=== PATIENT | female | born 1935 | race Caucasian/White ===

== ENCOUNTER → 2017-11-17 | Outpatient (CLI) | payer MEDICARE, OTHER ==
[~2017-11-17] MED LIST: ACETAMINOPHEN-1 EAC1; ACETAMINOPHEN-1 EAC1 PO; ADULT LOW DOSE81 MG; ASPIR 8181 MG PO; B-100 COMPLEX1 EAC1 PO; BONIVA; CARDIZEM30 MG PO; DILTIAZEM HCL90 MG PO; DULERA 200 MCG/13 GM INH; FISH OIL 1,0001 EAC5 PO; FISH OIL 1,0001 EAC6; FLAGYL500 MG PO; GRALISE600 MG PO; IBANDRONATE SO150 MG PO; IMDUR 30 MG TAB30 M1 PO; IRON325 PO; ISOSORBIDE DINI30 MG; ISOSORBIDE MONO30 M1 PO; LASIX 40 MG TAB40 M2 PO; LEVAQUIN 500 M500 M2 PO; LOPRESSOR 50 MG50 M1; METOPROLOL SUCC25 M1 PO; NEURONTIN 300300 M1 PO; NEURONTIN600 MG; NEURONTIN600 MG PO; NEXIUM 40 MG CA40 M1 PO; NEXIUM20 MG PO; NEXIUM40 MG; NORVASC5 MG PO; OS-CAL 500+D C1 EACH; OXYBUTYNIN 5 MG5 M2 PO; PAIN & FEVER325 MG PO; PHENERGAN 25 MG25 M1 PO; PRAVACHOL80 MG PO; SENNA LAXATIVE25 MG PO; SENOKOT-S1 TA1 PO; SIMVASTATIN40 MG; STOOL SOFTENER1 EAC1 PO; TOPROL XL25 MG PO; TOPROL XL50 MG PO; VITAMIN B-121000 MC1 PO; VITAMIN C + RO500 MG; VITAMIN C500 M1 PO; VITAMIN D1000 UNI2 PO; VITAMINC500 PO; XANAX 0.25 MG0.25 MG PO; ZOCOR40 MG PO; ZOFRAN ODT4 MG PO; [UNRECOGNIZED DRUG - OTHER]
--- NOTE | 2017-11-17 13:47 | 2DMMODE ---
[place] [address] 2 D/M-MODE ECHOCARDIOGRAM Name: JUSTINBRIANDA Room: [facility]#: [id number] Admission: 11/17/17 Attend Phys: Rolo Griffith, Discharge: Date of : 31 Date of Service: 11/17/17 1346 Report #: [id number] THIS REPORT FOR: //name// APPROVED REPORT Study performed: 11/17/2017 10:05:10 EXAM: Comprehensive 2D, Doppler, and color-flow Echocardiogram Patient Location: Out-Patient Status: routine BSA: 1.71 HR: 66 bpm BP: 102/68 mmHg Other Information Study Quality: Good Indications Mitral Valve Disease 2D Dimensions LVEF(%): 55.43 (>50%) IVSd: 13.36 (7-11mm) LVOT Diam: 20.27 (18-24mm) LVDd: 44.97 mm PWd: 11.69 (7-11mm) Ascending Ao: 25.93 (22-36mm) LVDs: 32.06 (25-40mm) Aortic Root: 23.19 mm Prcie's LVEF: 55.43 % Volumes Left Atrial Volume (Systole) LA ESV Index: 36.50 mL/m2 Aortic Valve AoV Peak Prieto.: 2.82 m/s AO Peak Gr.: 31.75 mmHg LVOT Max P.54 mmHg AO Mean Gr.: 18.95 mmHg LVOT Mean P.70 mmHg LVOT Max V: 1.18 m/s AO V2 VTI: 63.37 cm LVOT Mean V: 0.76 m/s LE (VTI): 1.30 cm2 LVOT V1 VTI: 25.46 cm Mitral Valve MV Peak Gr.: 13.62 mmHg MV Mean Gr.: 6.67 [place] [address] 2 D/M-MODE ECHOCARDIOGRAM Name: BRIANDA ANDERSON Room: [facility]#: [id number] Admission: 11/17/17 Attend Phys: Rolo Griffith, Discharge: Date of : 31 Date of Service: 11/17/17 1346 Report #: [id number] MV Decel. Time: 161.61 ms MV PHT: 46.87 ms MVA (PHT): 4.69 cm2 TDI Medial E' Prieto.: 0.11 m/s Lateral E' Prieto.: 0.08 m/s Pulmonary Valve PV Peak Prieto.: 0.95 m/s PV Peak Gr.: 3.59 mmHg Tricuspid Valve TR Peak Gr.: 28.05 mmHg RVSP: 33.05 mmHg Left Ventricle The left ventricle is normal size. There is normal LV segmental wall motion. There is normal left ventricular wall thickness. Left ventricular systolic function is normal. The left ventricular ejection fraction is within the normal range. LVEF is 60-65%. Grade I - abnormal relaxation pattern. Right Ventricle The right ventricle is normal size. The right ventricular systolic function is normal. Pacemaker lead is present in the right ventricle. Atria Left atrium is moderately dilated. Pacemaker lead is present in the right atrium. Aortic Valve Aortic valve is calcified. No aortic regurgitation is present. Mild aortic stenosis. Mitral Valve Severe mitral annular calcification. Moderate mitral regurgitation. No significant mitral valve stenosis. Tricuspid Valve The tricuspid valve is normal in structure. Mild tricuspid regurgitation. The RVSP is __33 mmHg. Pulmonic Valve The pulmonary valve is normal in structure. Mild pulmonic regurgitation[place] [address] 2 D/M-MODE ECHOCARDIOGRAM Name: BRIANDA ANDERSON Room: [facility]#: [id number] Admission: 11/17/17 Attend Phys: Rolo Griffith, Discharge: Date of : 31 Date of Service: 11/17/17 1346 Report #: [id number] The aortic root is normal in size. IVC is normal in size and collapses with >50% inspiration Pericardium There is no pericardial effusion. <Conclusion> The left ventricle is normal size. There is normal left ventricular wall thickness. Left ventricular systolic function is normal. The left ventricular ejection fraction is within the normal range. LVEF is 60-65%. Grade I - abnormal relaxation pattern. The right ventricle is normal size. Left atrium is moderately dilated. Aortic valve is calcified. No aortic regurgitation is present. Mild aortic stenosis. Severe mitral annular calcification. Moderate mitral regurgitation. No significant mitral valve stenosis. The tricuspid valve is normal in structure. Mild tricuspid regurgitation. The RVSP is __33 mmHg. The aortic root is normal in size. IVC is normal in size and collapses with >50% inspiration There is no pericardial effusion. There is normal LV segmental wall motion. <ELECTRONICALLY SIGNED> By: Kermit Darden MD, FACC 11/17/17 1346 134 Kermit Darden MD, FACC /INF
== END ==
LOC: M.CRD 09:38
DX: I08.1 Rheumatic disorders of both mitral and tricuspid valves (principal); I10 Essential (primary) hypertension; Z95.0 Presence of cardiac pacemaker

== ENCOUNTER → 2018-02-11 | Outpatient (CLI) | payer MEDICARE, OTHER | LOC: M.RAD 12:39 | DX: M16.12 Unilateral primary osteoarthritis, left hip (principal); M70.72 Other bursitis of hip, left hip ==

== ENCOUNTER → 2018-06-26 | Outpatient (CLI) | payer MEDICARE, OTHER | LOC: M.RAD 10:57 | DX: Z12.31 Encounter for screening mammogram for malignant neoplasm of breast (principal) ==

== ENCOUNTER → 2019-01-13 | Outpatient (CLI) | payer MEDICARE, OTHER ==
--- NOTE | 2019-01-13 14:00 | 2DMMODE ---
[place] [address] 2 D/M-MODE ECHOCARDIOGRAM Name: KELLY ANDERSONRED AG Room: [facility]#: [id number] Admission: 01/13/19 Attend Phys: Rolo Griffith, Discharge: Date of : 31 Date of Service: 01/13/19 1359 Report #: [id number] THIS REPORT FOR: //name// APPROVED REPORT Study performed: 01/13/2019 08:57:59 EXAM: Comprehensive 2D, Doppler, and color-flow Echocardiogram Patient Location: Out-Patient BSA: 1.73 HR: 78 bpm BP: 105/68 mmHg Other Information Study Quality: Good Indications Mitral Valve Disease 2D Dimensions IVSd: 13.73 (7-11mm) LVOT Diam: 20.15 (18-24mm) LVDd: 46.59 mm PWd: 10.42 (7-11mm) Ascending Ao: 29.22 (22-36mm) LVDs: 29.94 (25-40mm) Aortic Root: 22.41 mm Volumes Left Atrial Volume (Systole) LA ESV Index: 31.10 mL/m2 Aortic Valve AoV Peak Prieto.: 3.11 m/s AO Peak Gr.: 38.70 mmHg LVOT Max P.45 mmHg AO Mean Gr.: 21.72 mmHg LVOT Mean P.14 mmHg LVOT Max V: 1.62 m/s AO V2 VTI: 66.57 cm LVOT Mean V: 1.04 m/s LE (VTI): 1.56 cm2 LVOT V1 VTI: 32.58 cm Mitral Valve MV Peak Gr.: 11.38 mmHg MV Mean Gr.: 6.30 mmHg E/A Ratio: 1.14 MV Decel. Time: 194.76 ms MV E Max Prieto.: 1.89 m/s MV PHT: 56.48 [place] [address] 2 D/M-MODE ECHOCARDIOGRAM Name: JUSTINBRIANDA LUONG Room: [facility]#: [id number] Admission: 01/13/19 Attend Phys: Rolo Griffith, Discharge: Date of : 31 Date of Service: 01/13/19 1359 Report #: [id number] MVA (PHT): 3.90 cm2 TDI E/Lateral E': 23.63 E/Medial E': 23.63 Medial E' Prieto.: 0.08 m/s Lateral E' Prieto.: 0.08 m/s Pulmonary Valve PV Peak Prieto.: 0.88 m/s PV Peak Gr.: 3.12 mmHg Tricuspid Valve RAP Estimate: 5.00 mmHg TR Peak Gr.: 35.77 mmHg RVSP: 40.77 mmHg PA Pressure: 40.77 mmHg Left Ventricle The left ventricle is normal size. There is normal LV segmental wall motion. There is normal left ventricular wall thickness. Left ventricular systolic function is normal. The left ventricular ejection fraction is within the normal range. LVEF is 60%. The left ventricular diastolic function is normal. Right Ventricle The right ventricle is normal size. The right ventricular systolic function is normal. Pacemaker lead is present in the right ventricle. Atria Left atrium is moderately dilated. Pacemaker lead is present in the right atrium. Aortic Valve Aortic valve is mildly calcified. Mild aortic regurgitation. Mild aortic stenosis. Mitral Valve Severe mitral annular calcification. Mitral valve leaflets are moderately thickened. Moderate mitral regurgitation. Mild mitral stenosis. Tricuspid Valve The tricuspid valve is normal in structure. Mild to moderate tricuspid regurgitation. Pulmonic Valve The pulmonary valve is normal in structure. Mild [place] [address] 2 D/M-MODE ECHOCARDIOGRAM Name: BRIANDA ANDERSON Room: [facility]#: [id number] Admission: 01/13/19 Attend Phys: Rolo Griffith, Discharge: Date of : 31 Date of Service: 01/13/19 1359 Report #: [id number] Great Vessels The aortic root is normal in size. IVC is normal in size and collapses >50% with inspiration. Pericardium There is no pericardial effusion. <Conclusion> The left ventricle is normal size. There is normal left ventricular wall thickness. Left ventricular systolic function is normal. The left ventricular ejection fraction is within the normal range. LVEF is 60%. The right ventricle is normal size. Left atrium is moderately dilated. Aortic valve is mildly calcified. Mild aortic regurgitation. Mild aortic stenosis. Severe mitral annular calcification. Mitral valve leaflets are moderately thickened. Moderate mitral regurgitation. Mild mitral stenosis. The tricuspid valve is normal in structure. Mild to moderate tricuspid regurgitation. IVC is normal in size and collapses >50% with inspiration. There is normal LV segmental wall motion. <ELECTRONICALLY SIGNED> By: Kermit Darden MD, FACC 01/13/19 1359 1359 1359 Kermit Darden MD, FACC /INF
== END ==
LOC: M.CRD 01-12 15:35
DX: I08.3 Combined rheumatic disorders of mitral, aortic and tricuspid valves (principal)

== ENCOUNTER 2019-02-22 18:25 | Emergency (ER) | payer MEDICARE, OTHER ==
[~2019-02-22] VITALS: Ht 157.5 cm; Wt 65.8 kg
[2019-02-22 19:30] LABS: ABSOLUTE EOSINOPHILS 0.2 thou/uL (0.0-0.7); ABSOLUTE LYMPHOCYTES 0.7 thou/uL (0.8-5.3); ABSOLUTE MONOCYTES 0.4 thou/uL (0.0-1.2); ABSOLUTE NEUTROPHILS 1.5 thou/uL (1.6-8.1); BASOPHILS 1.4 %; HEMATOCRIT 32.3 % (37.0-47.0); HEMOGLOBIN 10.7 gm/dL (12.0-15.0); LYMPHOCYTES 24.9 %; MCH 30.5 pg (26.0-34.0); MCHC 33.1 g/dL (28.0-37.0); MPV 9.5 fl. (7.2-11.1); NUCLEATED RBCS 0 /100WBC; PLATELET COUNT* 91 thou/uL (150-400); POLYS 51.7 %; RBC 3.51 mil/uL (4.20-5.00); RDW-CV 15.8 % (10.5-14.5); WBC 2.9 thou/uL (4.0-11.0)
[2019-02-22 19:36] LABS: CALCIUM 8.8 mg/dL (8.5-10.1); CREATININE 1.3 mg/dL (0.6-1.3); POTASSIUM 4.3 mmol/L (3.5-5.1)
[2019-02-22 19:41] LABS: ALBUMIN 3.5 g/dL (3.4-5.0); TOTAL BILIRUBIN 0.4 mg/dL (<0.1-1.0); TOTAL PROTEIN 6.2 g/dL (6.4-8.2)
[2019-02-22 20:04] LABS: URINE BILIRUBIN NEGATIVE (Negative); URINE BLOOD NEGATIVE (Negative); URINE CLARITY CLEAR; URINE COLOR YELLOW; URINE GLUCOSE-RANDOM NEGATIVE (Negative); URINE KETONES NEGATIVE (Negative); URINE LEUKOCYTES-REFLEX NEGATIVE (Negative); URINE NITRITE-REFLEX NEGATIVE (Negative); URINE PROTEIN NEGATIVE (Negative); URINE UROBILINOGEN 0.2 E.U./dl (0.2-1.0)
[2019-02-22 21:56] VITALS: BP 104/42
--- NOTE | 2019-02-23 12:53 | EKG ---
[place] [address] ELECTROCARDIOGRAM REPORT Name: BRIANDA ANDERSON AG Room: [facility]#: [id number] Admission: 02/22/19 Attend Phys: Discharge: 02/22/19 Date of : 31 Report #: [id number] THIS REPORT FOR: //name// [facility] Test Date: 2019-02-22 Test Time: 20:36:46 Pat Name: BRIANDA ANDERSON Department: Room: Gender: F Log Feeder: KELLY : 1935 Requested By: Otilia Vegas Order Number: [id number] MD: Rolo Griffith Measurements Intervals [place] Rate: 67 P: 27 [place]: 303 QRS: -49 QRSD: 157 T: 102 QT: 509 QTc: 538 Interpretive Statements Atrial-sensed ventricular-paced rhythm No further analysis attempted due to paced rhythm Compared to ECG 02/05/2017 01:17:24 No significant changes Electronically Signed On 02-23-2019 12:53:13 CDT by Rolo Griffith [email or web address] <ELECTRONICALLY SIGNED> By: Rolo Griffith MD, [facility] 02/23/19 1253 35 35 Rolo Griffith MD, [facility] /EPI
== END 2019-02-22 21:56 | disposition home or self-care (01) ==
LOC: M.ERS 18:25
PROVIDERS: Physician Assistant
DX: K59.00 Constipation, unspecified (principal); M79.7 Fibromyalgia; M19.90 Unspecified osteoarthritis, unspecified site; Z90.49 Acquired absence of other specified parts of digestive tract; Z85.828 Personal history of other malignant neoplasm of skin; Z95.0 Presence of cardiac pacemaker; Z88.1 Allergy status to other antibiotic agents; Z88.2 Allergy status to sulfonamides; Z88.8 Allergy status to other drugs, medicaments and biological substances; Z88.6 Allergy status to analgesic agent

== ENCOUNTER 2019-03-13 22:25 | Emergency (ER) | payer MEDICARE, OTHER ==
[~2019-03-13] VITALS: Ht 162.6 cm; Wt 65.8 kg
[2019-03-13 22:55] LABS: ABSOLUTE EOSINOPHILS 0.3 thou/uL (0.0-0.7); ABSOLUTE LYMPHOCYTES 0.6 thou/uL (0.8-5.3); ABSOLUTE MONOCYTES 0.8 thou/uL (0.0-1.2); BASOPHILS 0.6 %; EOSINOPHILS 3.7 %; HEMATOCRIT 37.1 % (37.0-47.0); HEMOGLOBIN 12.2 gm/dL (12.0-15.0); LYMPHOCYTES 9.5 %; MCH 30.3 pg (26.0-34.0); MCHC 32.8 g/dL (28.0-37.0); MCV 92.1 fL (80.0-100.0); MONOCYTES 12.1 %; MPV 8.8 fl. (7.2-11.1); NUCLEATED RBCS 0 /100WBC; PLATELET COUNT* 117 thou/uL (150-400); POLYS 74.1 %; RBC 4.02 mil/uL (4.20-5.00); RDW-CV 15.3 % (10.5-14.5); WBC 6.7 thou/uL (4.0-11.0)
[2019-03-13 23:03] LABS: ANION GAP 8 mmol/L (7-16); BUN 28 mg/dL (7-18); CHLORIDE 105 mmol/L (98-107); CO2 24 mmol/L (21-32); CREATININE 1.2 mg/dL (0.6-1.3); GLUCOSE 121 mg/dL (70-99); POTASSIUM 3.9 mmol/L (3.5-5.1); SODIUM 137 mmol/L (136-145)
[2019-03-13 23:05] LABS: PROTIME 10.1 Seconds (9.20-11.50)
[2019-03-13 23:13] LABS: ALBUMIN 3.5 g/dL (3.4-5.0); ALKALINE PHOSPHATASE 46 U/L (46-116); LIPASE 89 U/L (73-393); NT-PRO BRAIN NAT PEPTIDE 1989 pg/mL (<300); SGOT 20 U/L (15-37); SGPT 16 U/L (30-65); TOTAL BILIRUBIN 0.6 mg/dL (<0.1-1.0); TOTAL PROTEIN 6.9 g/dL (6.4-8.2); TROPONIN-I LEVEL <0.06 ng/mL (<0.06)
[2019-03-14 00:57] LABS: URINE BILIRUBIN NEGATIVE (Negative); URINE BLOOD NEGATIVE (Negative); URINE CLARITY CLEAR; URINE COLOR YELLOW; URINE GLUCOSE-RANDOM NEGATIVE (Negative); URINE KETONES NEGATIVE (Negative); URINE LEUKOCYTES-REFLEX NEGATIVE (Negative); URINE NITRITE-REFLEX NEGATIVE (Negative); URINE PROTEIN NEGATIVE (Negative); URINE SPECIFIC GRAVITY 1.015 (1.005-1.030); URINE UROBILINOGEN 0.2 E.U./dl (0.2-1.0)
[2019-03-14] MEDS ORDERED: ZOFRAN ODT4 MG PO (02:30)
[2019-03-14] MEDS ORDERED: AZITHROMYCIN 2250 MG PO (02:31)
[2019-03-14 02:45] VITALS: BP 112/62
--- NOTE | 2019-03-15 13:34 | EKG ---
[place] [address] ELECTROCARDIOGRAM REPORT Name: BRIANDA ANDERSON AG Room: [facility]#: [id number] Admission: 03/13/19 Attend Phys: Discharge: 03/14/19 Date of : 31 Report #: [id number] THIS REPORT FOR: //name// [facility] ED Test Date: 2019-03-13 Test Time: 23:03:27 Pat Name: BRIANDA ANDERSON Department: Room: Gender: F Ladle Liner: JOSE : 1935 Requested By: So Bateman Order Number: [id number] MD: Kermit Darden Measurements Intervals [place] Rate: 74 P: 58 [place]: 301 QRS: -42 QRSD: 153 T: 101 QT: 452 QTc: 502 Interpretive Statements Atrial-sensed ventricular-paced rhythm No further analysis attempted due to paced rhythm Compared to ECG 02/22/2019 20:36:46 No significant changes Electronically Signed On 03-15-2019 13:33:55 CDT by Kermit Darden [email or web address] <ELECTRONICALLY SIGNED> By: Kermit Darden MD, [facility] 03/15/19 1333 2303 230 Kermit Darden MD, [facility] /EPI
== END 2019-03-14 02:54 | disposition home or self-care (01) ==
LOC: M.ERS 22:25
PROVIDERS: Emergency Medicine
DX: R11.2 Nausea with vomiting, unspecified (principal); R05 Cough; R19.7 Diarrhea, unspecified; M19.90 Unspecified osteoarthritis, unspecified site; M79.7 Fibromyalgia; Z96.651 Presence of right artificial knee joint; Z95.0 Presence of cardiac pacemaker; Z88.1 Allergy status to other antibiotic agents; Z88.2 Allergy status to sulfonamides; Z88.6 Allergy status to analgesic agent; Z88.5 Allergy status to narcotic agent; Z88.8 Allergy status to other drugs, medicaments and biological substances

== ENCOUNTER 2019-03-15 07:24 | Inpatient (IN) | payer MEDICARE, OTHER ==
[~2019-03-15] VITALS: Ht 160 cm; Wt 68.0 kg
[~2019-03-15 07:24] MED LIST changes: +AZITHROMYCIN 2250 MG PO; +CARDIZEM CD 18180 M3 PO; -CARDIZEM30 MG PO
[2019-03-15 07:36] VITALS: BP 111/43
[2019-03-15 08:27] LABS: ABSOLUTE EOSINOPHILS 0.1 thou/uL (0.0-0.7); ABSOLUTE LYMPHOCYTES 0.5 thou/uL (0.8-5.3); ABSOLUTE MONOCYTES 0.7 thou/uL (0.0-1.2); ABSOLUTE NEUTROPHILS 3.2 thou/uL (1.6-8.1); BASOPHILS 0.4 %; EOSINOPHILS 3.1 %; HEMATOCRIT 36.1 % (37.0-47.0); HEMOGLOBIN 11.7 gm/dL (12.0-15.0); LYMPHOCYTES 10.5 %; MCH 30.2 pg (26.0-34.0); MCHC 32.5 g/dL (28.0-37.0); MCV 92.9 fL (80.0-100.0); MONOCYTES 14.8 %; NUCLEATED RBCS 0 /100WBC; PLATELET COUNT* 107 thou/uL (150-400); POLYS 71.2 %; RBC 3.88 mil/uL (4.20-5.00); RDW-CV 14.9 % (10.5-14.5); WBC 4.4 thou/uL (4.0-11.0)
[2019-03-15 08:35] LABS: CALCIUM 7.8 mg/dL (8.5-10.1); CREATININE 1.1 mg/dL (0.6-1.3); POTASSIUM 4.2 mmol/L (3.5-5.1)
[2019-03-15 08:39] LABS: TOTAL BILIRUBIN 0.3 mg/dL (<0.1-1.0)
[2019-03-15 09:21] LABS: URINE BILIRUBIN NEGATIVE (Negative); URINE BLOOD TRACE (Negative); URINE CLARITY CLEAR; URINE COLOR YELLOW; URINE GLUCOSE-RANDOM NEGATIVE (Negative); URINE KETONES NEGATIVE (Negative); URINE LEUKOCYTES-REFLEX NEGATIVE (Negative); URINE NITRITE-REFLEX NEGATIVE (Negative); URINE PROTEIN NEGATIVE (Negative); URINE UROBILINOGEN 0.2 E.U./dl (0.2-1.0)
[2019-03-15 14:22] VITALS: BP 99/49
[2019-03-15 15:49] VITALS: BP 117/67
--- NOTE | 2019-03-15 16:56 | NUR ---
ASSUMED CARE AT 1500. ADMIT FROM ER HX OF ABDOMINAL PAIN AND NAUSEA. HAS BEEN UP TO BSC X 2. HAS HAD 2 LOOSE ODOROUS BMS SINCE ARRIVAL. VERY PICKY NEEDS ATTENTION AND MANY REQUESTS. C/O SORE THROAT IV INFUSING RT. ANTECUBITAL AT 100CC HR. CALL LIGHT AND NEEDS WITHIN REACH.
[2019-03-15 19:34] VITALS: BP 140/59
[2019-03-16 04:24] LABS: ABSOLUTE EOSINOPHILS 0.1 thou/uL (0.0-0.7); ABSOLUTE LYMPHOCYTES 0.5 thou/uL (0.8-5.3); ABSOLUTE MONOCYTES 0.7 thou/uL (0.0-1.2); BASOPHILS 0.5 %; EOSINOPHILS 1.7 %; HEMATOCRIT 35.9 % (37.0-47.0); HEMOGLOBIN 11.5 gm/dL (12.0-15.0); MCH 30.5 pg (26.0-34.0); MCHC 32.1 g/dL (28.0-37.0); MCV 94.9 fL (80.0-100.0); MPV 9.5 fl. (7.2-11.1); NUCLEATED RBCS 0 /100WBC; PLATELET COUNT* 91 thou/uL (150-400); POLYS 69.8 %; RBC 3.78 mil/uL (4.20-5.00); RDW-CV 15.6 % (10.5-14.5); WBC 4.3 thou/uL (4.0-11.0)
[2019-03-16 05:04] LABS: CALCIUM 7.7 mg/dL (8.5-10.1); CREATININE 0.9 mg/dL (0.6-1.3); POTASSIUM 3.7 mmol/L (3.5-5.1)
--- NOTE | 2019-03-16 06:07 | NUR ---
PT ALERT AND ORIENTED. VSS ON RA. PT HAD SEVERAL EPISODES OF DIARRHEA BEGINNING OF SHIFT. RECTAL AREA SORE. BARRIER CREAM APPLIED AFTER EACH STOOL EPISODE. MEDS GIVEN OER EMAR. NEW IV ON LFA WITH NS @ 100ML/HR INFUSING. PT SLEPT WELL THIS SHIFT. CALL LIGHT WITHIN REACH. HOURLY ROUNDINGS MADE. WILL CONTINUE TO MONITOR.
[2019-03-16 08:15] VITALS: BP 118/53
--- NOTE | 2019-03-16 16:44 | NUR ---
PATIENT LIQUID STOOLS SLOWING DOWN FROM MAG CITRATE YESTERDAY. PT/OT SAW PATIENT TODAY. UP WITH SBA, AMBULATING WITHOUT DIFFICULTY. IVF REMAINS INFUSING. TOLERATING DIET.
[2019-03-16 16:51] VITALS: BP 112/57
[2019-03-16 19:20] VITALS: BP 124/70
[2019-03-16 21:48] VITALS: BP 132/57
[2019-03-17 02:59] LABS: BE -2.7 mmol/L (-2 to +3); PCO2 39.7 mmHg (35.0-45.0); PO2 121.1 mmHg (75.0-100.0); pH 7.368 (7.340-7.450)
--- NOTE | 2019-03-17 06:18 | NUR ---
PT ALERT AND ORIENTED. VSS ON RA BEGINNING OF SHIFT. PT ADMITS SHE DID NOT SLEEP WELL THIS SHIFT. PT COMPLAINED OF SOA AND DIFFICULTY BREATHING. PT WAS PUT ON 2L NC. CXRAY WAS ORDERED. PT SOUNDED WHEEZING. FLUDIS WERE DC/D LASIX IV WAS GIVEN ONETIME. AT THIS TIME, PT FEEL MUCH BETTER. DOES NOT SOUND WHEEZY COMPARED TO EARLIER. PT
[2019-03-17 07:40] VITALS: BP 133/69
--- NOTE | 2019-03-17 07:40 | NUR ---
0740: PATIENT RESTING IN BED, EYES OPEN, CALM. PLEASANT AND COOEPRATIVE W/ ASSESS. PATIENT STATES HAVING A ROUGH NOC, DENIES PAIN, SOB AT THIS TIME. NOTED IV SL INTACT, WNL. SBA TO BSC, PATIENT REFUSING TO USE CANE. PATIENT NOTIBLY WEAK. ~TJRN
[2019-03-17 08:30] LABS: NT-PRO BRAIN NAT PEPTIDE 4353 pg/mL (<300); TROPONIN-I LEVEL <0.06 ng/mL (<0.06)
--- NOTE | 2019-03-17 10:37 | EKG ---
[place] [address] ELECTROCARDIOGRAM REPORT Name: BRIANDA ANDERSON Room: [address] ADM IN M.R.#: [id number] Admission: 03/15/19 Attend Phys: Tito Carter MD Discharge: Date of : 31 Report #: [id number] THIS REPORT FOR: //name// [facility] Test Date: 2019-03-17 Test Time: 10:02:21 Pat Name: BRIANDA ANDERSON Department: Room: [address] Gender: F News Clerk: : 1935 Requested By: Portia Quiroz Order Number: [id number] Giselle MD: Kermit Darden Measurements Intervals [place] Rate: 82 P: 62 ND: 233 QRS: -41 QRSD: 146 T: 106 QT: 435 QTc: 508 Interpretive Statements atrial sensed Ventricular-paced rhythm No further analysis attempted due to paced rhythm Compared to ECG 03/13/2019 23:03:27 no significant change Electronically Signed On 03-17-2019 10:36:50 CDT by Kermit Darden [email or web address] <ELECTRONICALLY SIGNED> By: Kermit Darden MD, [facility] 03/17/19 1036 1002 1002 Kermit Darden MD, [facility] /EPI
--- NOTE | 2019-03-17 10:45 | NUR ---
C/O PAIN IN CHEST AREA. STATES THAT SHE HAS HX OF FIBROMYALGIA. STATES SHE FEELS LIKE SHE HAS ALOT OF GAS TO GET RID OF, FEELING BLOATED. O2 1L/NC FOR PATIENT COMFORT. NOTED TENDERNESS W/ PALP TO CHEST AREA. PATIENT STATES INCREASED DISCOMFORT FROM ABDOMINAL EPIGASTRIC AREA. LEMON-TELIDA SODA GIVEN. ~TJRN
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
--- NOTE | 2019-03-17 11:30 | NUR ---
PATIENT STATES STARTING TO RELIEVE GAS, STATES CHEST HEAVINESS FROM ABDOMINAL EPIGASTRIC AREA "PUSHING UP" INTO GENERALIZED CHEST AREA. ~TJRN
--- NOTE | 2019-03-17 11:55 | NUR ---
PATIENT TRANSFERRED TO ANOTHER UNIT AT THIS TIME PER BED W/ X2 ASST. ~TJRN
[2019-03-17 12:00] VITALS: BP 124/60
--- NOTE | 2019-03-17 13:57 | NUR ---
RECEIEVED REPORT FROM MUMTAZ RN IN [facility] AT 1030- DX: TRANSFER R/T CHEST PAIN- PT ARRIVED TO ROOM 331 VIA BED AT 1200- LENS MOLDING EQUIPMENT OPERATOR PLACED ORDERED, TRACING V-PACED WITH NOTED PACE MAKER- PT A&O X4- CONTINENT FO BOWEL AND BLADDER- SBA WITH CANE FOR TRANSFERS- LCTA,DIMINSHED IN BASES- RESP EVEN AND UN-LABORED- VSS, O2 SAT 96% ON 1L VIA NC- ABD SOFT/ROUND/NON-TENDER, BS X 4 QUADS- LAST BM REPORTED 03/16/19- IV NOTED TO LEFT FA INTACT AND SL- POOR PO INTAKE NOTED WITH LUNCH, PT REPORTS TO HAVE VOMITED, BUT NOT WITTNESSED- PRN ZOFRAN GIVEN AT 1327- CHEST X-RAY COMPLETED ORDERED, RESULTS NOTED IN MEDITECH- CARDIOLOGY HERE TO ASSESS CONSULTED, PLANS NOTED IN CHART- PT STATES CHEST DISCOMFORT, NO PAIN- CALL LIGHT AND PERSONAL BELONGINGS WITH IN REACH- HOURLY ROUNDS IN PLACE R/T SAFETY/NEEDS- ALL NEEDS MET AT THIS TIME-WCTM
[2019-03-17 15:51] VITALS: BP 106/47
--- NOTE | 2019-03-17 16:18 | NUR ---
PT CURRENTLY RESTING IN BED- ALCOHOL AND DRUG COUNSELOR IN PLACE ORDERED, TRACING V-PACED- IV NOTED TO LEFT FA INTACT AND SL- ALL NEEDS MET AT THIS TIME-WCTM
[2019-03-17 20:20] VITALS: BP 110/68
[2019-03-18] VITALS: BP 151/55
[2019-03-18 04:00] VITALS: BP 110/50
--- NOTE | 2019-03-18 07:53 | NUR ---
PT CARE ASSUMED AT 1930. SAT MAINTAINED IN O2. ALERT AND ORIENTED X4. CALL LIGHT WITHIIN REACH AND BED IN LOW POSITIOIN. HOURLY ROUNDING DONE FOR PT SAFETY.
[2019-03-18 08:00] VITALS: BP 140/53
--- NOTE | 2019-03-18 09:38 | NUR ---
ASSUMED CARE OF PT THIS AM AROUND 714- SHEET MANUFACTURING SUPERVISOR IN PLACE ORDERED, TRACING V-PACED WITH BBB/1ST DEGREE- UPON ASSESSMENT PT NOTED TO BE RESTING IN BED- PT A&O X4- CONTINENT OF BOWEL AND BLADDER- SBA WITH CANE FOR TRANSFERS-LCTA, RESP EVEN AND UN-LABORED- VSS, O2 SAT 95% ON RA - ABD SOFT/ROUND/NON-TENDER, BS X4 QUADS- LAST BM REPORTED X2 DAYS AGO-IV NOTED TO LEFT FA INTACT AND SL- FAIR PO INTAKE NOTED THIS SHIFT WITH BREAKFAST- SCHEDULED TYLENOL 3 GIVEN PRESCIBED THIS AM, PT REPORTS TO BE EFFECTIVE- CALL LIGHT AND PERSONAL BELONGINGS WITH IN REACH- HOURLY ROUNDS IN PLACE R/T SAFETY/NEEDS- ALL NEEDS MET AT THIS TIME-WCTM
--- NOTE | 2019-03-18 12:05 | NUR ---
ORDERS NOTED FOR DC HOME WITH HH. MET WITH PT, DISCUSSED, SHE CHOSE [facility]. CALLED AND [facility] ORD[facility]. PT STATED SHE HAD BEEN DOING OUTPT THERAPY FOR HER NECK AND UNDERSTANDS SHE CANNOT RESUME UNTIL HH COMPLETE. NO OTHER NEEDS ID'D
[2019-03-18 12:10] VITALS: BP 103/50
[2019-03-18] MEDS ORDERED: MACRODANTIN50 M1 PO (13:01)
[2019-03-18] MEDS ORDERED: LASIX 20 MG TAB20 MG PO (14:00)
--- NOTE | 2019-03-18 17:11 | EKG ---
[place] [address] ELECTROCARDIOGRAM REPORT Name: JUSTINBRIANDA AG Room: [address] ADM IN .R.#: [id number] Admission: 03/15/19 Attend Phys: Tito Carter MD Discharge: Date of : 31 Report #: [id number] THIS REPORT FOR: //name// [facility] Test Date: 2019-03-17 Test Time: 18:31:22 Pat Name: BRIANDA ANDERSON Department: Room: [address] Gender: F Manager Market Development: : 1935 Requested By: Florentino Hernandez Order Number: [id number] Giselle MD: Rolo Griffith Measurements Intervals [place] Rate: 71 P: 0 NC: 290 QRS: -22 QRSD: 161 T: 99 QT: 492 QTc: 535 Interpretive Statements Atrial-sensed ventricular-paced rhythm No further analysis attempted due to paced rhythm Compared to ECG 03/17/2019 10:02:21 No significant changes Electronically Signed On 03-18-2019 17:11:36 CDT by Rolo Griffith [email or web address] <ELECTRONICALLY SIGNED> By: Rolo Griffith MD, FACC 03/18/19 1711 1831 183 Rolo Griffith MD, FAC /EPI
--- NOTE | 2019-03-18 17:29 | NUR ---
ORDERS RECEIEVIED FOR OKAY TO D/C TO HOME THIS SHIFT PER - MEDICATIONS CALLED AND VERIFIED WITH PHARMACY AND CLARIFIED WITH PRIOR TO D/C- IV TO LEFT FA D/C'D ALONG WITH CASING RUNNER PRIOR TO D/C- D/C EDUCATION/TEACHING GIVEN TO PT AND DAUGHTER PRIOR TO D/C WITH ALL QUESTIONS AND CONCERNS ADDRESSED PRIOR TO D/C- WRITTEN EDUCATION ALONG WITH SCRIPTS PROVIDED TO PT PRIOR TO D/C- BELONGINGS PACKED AND ACCOUNTED FOR PER DAUGHTER- PT ESCORTED PER TECH VIA W/C WITH BELONGINGS; DAUGHTER AT SIDE TO VEHICLE AT 1730- NO PROBLEMS TO NOTE AT TIME OF D/C
== END 2019-03-18 17:36 | disposition home health service (06) | DRG 391 ==
LOC: M.ERS 07:24 → M.ORTHSURG 09:48 → M.TBA-ER 09:48 → M.ORTHSURG 14:31 → M.2W 03-17 12:01
PROVIDERS: Emergency Medicine; ADMIT Internal Medicine
DX: K59.00 Constipation, unspecified (principal); I50.33 Acute on chronic diastolic (congestive) heart failure; E44.1 Mild protein-calorie malnutrition; I48.92 Unspecified atrial flutter; E86.0 Dehydration; T39.1X5A Adverse effect of 4-Aminophenol derivatives, initial encounter; M79.7 Fibromyalgia; I34.0 Nonrheumatic mitral (valve) insufficiency; I07.1 Rheumatic tricuspid insufficiency; R19.7 Diarrhea, unspecified; E87.70 Fluid overload, unspecified; I09.1 Rheumatic diseases of endocardium, valve unspecified; I35.2 Nonrheumatic aortic (valve) stenosis with insufficiency; Z90.49 Acquired absence of other specified parts of digestive tract; Z88.1 Allergy status to other antibiotic agents; Z88.2 Allergy status to sulfonamides; Z88.8 Allergy status to other drugs, medicaments and biological substances; Z95.0 Presence of cardiac pacemaker; Z68.26 Body mass index [BMI] 26.0-26.9, adult; Z79.899 Other long term (current) drug therapy

== ENCOUNTER → 2019-05-20 | Outpatient (CLI) | payer MEDICARE, OTHER ==
[~2019-05-20] MED LIST changes: +LASIX 20 MG TAB20 MG PO; +MACRODANTIN50 M1 PO
== END ==
LOC: M.RAD 11:05
DX: M47.814 Spondylosis without myelopathy or radiculopathy, thoracic region (principal); M85.88 Other specified disorders of bone density and structure, other site; I44.2 Atrioventricular block, complete; I10 Essential (primary) hypertension; I05.9 Rheumatic mitral valve disease, unspecified; I47.1 Supraventricular tachycardia; M81.0 Age-related osteoporosis without current pathological fracture; M95.4 Acquired deformity of chest and rib; Z88.8 Allergy status to other drugs, medicaments and biological substances; Z88.2 Allergy status to sulfonamides; Z88.0 Allergy status to penicillin; Z95.0 Presence of cardiac pacemaker

== ENCOUNTER → 2019-06-23 | Outpatient (CLI) | payer MEDICARE, OTHER | LOC: M.CT 08:53 | DX: I11.0 Hypertensive heart disease with heart failure (principal); I50.32 Chronic diastolic (congestive) heart failure; I09.9 Rheumatic heart disease, unspecified; M54.2 Cervicalgia; G89.29 Other chronic pain; E78.2 Mixed hyperlipidemia; R06.02 Shortness of breath ==

== ENCOUNTER → 2019-10-20 | Outpatient (CLI) | payer MEDICARE, OTHER | LOC: M.ULTRA 13:24 | DX: M79.604 Pain in right leg (principal); I10 Essential (primary) hypertension; I50.32 Chronic diastolic (congestive) heart failure; K56.51 Intestinal adhesions [bands], with partial obstruction; N39.41 Urge incontinence; E78.2 Mixed hyperlipidemia; M54.2 Cervicalgia; G89.29 Other chronic pain ==

== ENCOUNTER 2019-12-29 14:53 | Emergency (ER) | payer MEDICARE, OTHER ==
[~2019-12-29] VITALS: Ht 162.6 cm; Wt 63.5 kg
[2019-12-29] MEDS ORDERED: NEXIUM2.5 MG PO (15:12)
[2019-12-29] MEDS ORDERED: MYRBETRIQ25 MG PO (15:13)
[2019-12-29] MEDS ORDERED: TOPROL XL25 MG PO (15:13)
[2019-12-29 15:52] LABS: ABSOLUTE EOSINOPHILS 0.2 thou/uL (0.0-0.7); ABSOLUTE LYMPHOCYTES 0.9 thou/uL (0.8-5.3); ABSOLUTE MONOCYTES 0.4 thou/uL (0.0-1.2); ABSOLUTE NEUTROPHILS 2.4 thou/uL (1.6-8.1); BASOPHILS 0.9 %; EOSINOPHILS 4.6 %; HEMATOCRIT 28.5 % (37.0-47.0); HEMOGLOBIN 9.4 gm/dL (12.0-15.0); MCH 30.1 pg (26.0-34.0); MCHC 33.1 g/dL (28.0-37.0); MONOCYTES 10.5 %; MPV 9.4 fl. (7.2-11.1); NUCLEATED RBCS 0 /100WBC; PLATELET COUNT* 98 thou/uL (150-400); RBC 3.13 mil/uL (4.20-5.00); RDW-CV 15.1 % (10.5-14.5); WBC 3.9 thou/uL (4.0-11.0)
[2019-12-29 15:58] LABS: INFLUENZA A ANTIGEN Negative (Negative)
[2019-12-29] MEDS ORDERED: TESSALON PERLE100 MG PO (15:59)
[2019-12-29 16:02] LABS: CALCIUM 8.6 mg/dL (8.5-10.1); CREATININE 1.4 mg/dL (0.6-1.3); POTASSIUM 4.7 mmol/L (3.5-5.1)
[2019-12-29 16:07] LABS: ALBUMIN 3.3 g/dL (3.4-5.0); TOTAL BILIRUBIN 0.3 mg/dL (<0.1-1.0); TOTAL PROTEIN 6.4 g/dL (6.4-8.2)
[2019-12-29 16:44] VITALS: BP 109/69
--- NOTE | 2019-12-30 08:55 | EKG ---
[place] [address] ELECTROCARDIOGRAM REPORT Name: JUSTINBRIANDA AG Room: [facility]#: [id number] Admission: 12/29/19 Attend Phys: Discharge: 12/29/19 Date of : 31 Date of Service: 12/29/19 1557 Report #: [id number] THIS REPORT FOR: //name// [facility] ED Test Date: 2019-12-29 Test Time: 15:57:40 Pat Name: BRIANDA ANDERSON Department: Room: Gender: F Application Chemist: JANELLE : 1935 Requested By: Otilia Vegas Order Number: [id number] MD: Breezy Valadez Measurements Intervals [place] Rate: 65 P: 42 [place]: 297 QRS: -36 QRSD: 149 T: 96 QT: 494 QTc: 514 Interpretive Statements Atrial-sensed ventricular-paced complexes No further analysis attempted due to paced rhythm Baseline wander in lead(s) V5 Compared to ECG 03/17/2019 18:31:22 No significant changes Electronically Signed On 12-30-2019 8:53:38 CDT by Breezy Valadez [email or web address] <ELECTRONICALLY SIGNED> By: Breeyz Valadez MD, [facility] 12/30/19 0853 1557 1557 Breezy Valadez MD, [facility] /EPI
== END 2019-12-29 16:44 | disposition home or self-care (01) ==
LOC: M.ERS 14:53
PROVIDERS: Physician Assistant
DX: J10.1 Influenza due to other identified influenza virus with other respiratory manifestations (principal); I10 Essential (primary) hypertension; E78.5 Hyperlipidemia, unspecified; Z88.1 Allergy status to other antibiotic agents; Z88.2 Allergy status to sulfonamides; Z88.8 Allergy status to other drugs, medicaments and biological substances; Z88.6 Allergy status to analgesic agent; Z90.49 Acquired absence of other specified parts of digestive tract

== ENCOUNTER → 2020-03-02 | Outpatient (CLI) | payer MEDICARE, OTHER ==
[~2020-03-02] MED LIST changes: +MYRBETRIQ25 MG PO; +NEXIUM2.5 MG PO; +TESSALON PERLE100 MG PO
== END ==
LOC: M.ULTRA 12:14
DX: M79.604 Pain in right leg (principal)

== ENCOUNTER → 2020-04-17 | Outpatient (CLI) | payer MEDICARE, OTHER ==
--- NOTE | 2020-04-17 14:44 | 2DMMODE ---
[place] [address] 2 D/M-MODE ECHOCARDIOGRAM Name: BRIANDA ANDERSON Room: [facility]#: [id number] Admission: 04/17/20 Attend Phys: Rolo Griffith, Discharge: Date of : 31 Date of Service: 04/17/20 1444 Report #: [id number] THIS REPORT FOR: cc: Breezy Winter MD, David L. MD Blick, David R. MD [facility] ~ APPROVED REPORT Study performed: 04/17/2020 10:20:38 EXAM: Comprehensive 2D, Doppler, and color-flow Echocardiogram Patient Location: Out-Patient BSA: 1.67 HR: 68 bpm BP: 122/66 mmHg Other Information Study Quality: Good Indications Rheumatic heart disease 2D Dimensions IVSd: 9.06 (7-11mm) LVOT Diam: 20.41 (18-24mm) LVDd: 37.69 mm PWd: 8.06 (7-11mm) Ascending Ao: 22.95 (22-36mm) LVDs: 26.14 (25-40mm) Aortic Root: 19.48 mm Volumes Left Atrial Volume (Systole) LA ESV Index: 21.50 mL/m2 Aortic Valve AoV Peak Prieto.: 3.16 m/s AO Peak Gr.: 39.98 mmHg LVOT Max P.27 mmHg AO Mean Gr.: 23.24 mmHg LVOT Mean P.75 mmHg LVOT Max V: 0.90 m/s AO V2 VTI: 69.16 cm LVOT Mean V: 0.61 m/s LE (VTI): 1.01 cm2 LVOT V1 VTI: 21.28 cm Mitral Valve MV Peak Gr.: 16.47 [place] [address] 2 D/M-MODE ECHOCARDIOGRAM Name: BRIANDA ANDERSON Room: [facility]#: [id number] Admission: 04/17/20 Attend Phys: Rolo Griffith, Discharge: Date of : 31 Date of Service: 04/17/20 1444 Report #: [id number] MV Mean Gr.: 6.73 mmHg E/A Ratio: 1.08 MV Decel. Time: 269.35 ms MV E Max Prieto.: 1.50 m/s MV PHT: 78.11 ms MVA (PHT): 2.82 cm2 TDI E/Lateral E': 18.75 E/Medial E': 21.43 Medial E' Prieto.: 0.07 m/s Lateral E' Prieto.: 0.08 m/s Pulmonary Valve PV Peak Prieto.: 0.80 m/s PV Peak Gr.: 2.54 mmHg Tricuspid Valve RAP Estimate: 5.00 mmHg TR Peak Gr.: 30.28 mmHg RVSP: 35.28 mmHg PA Pressure: 35.28 mmHg Left Ventricle The left ventricle is normal size. There is normal LV segmental wall motion. There is normal left ventricular wall thickness. Left ventricular systolic function is normal. The left ventricular ejection fraction is within the normal range. LVEF is 55-60%. The left ventricular diastolic function is normal. Right Ventricle The right ventricle is normal size. The right ventricular systolic function is normal. Pacemaker lead is present in the right ventricle. Atria The left atrium size is normal. Pacemaker lead is present in the right atrium. The right atrium size is normal. Aortic Valve Aortic valve is moderately calcified. Mild aortic regurgitation. Mild aortic stenosis. Mitral Valve Moderate mitral annular calcification. The mitral valve is mildly thickened. Moderately severe mitral regurgitation Mild mitral stenosis. Tricuspid Valve The tricuspid valve is normal in structure. Mild tricuspid regurgitation. estimated pa pressure 40 [place] [address] 2 D/M-MODE ECHOCARDIOGRAM Name: BRIANDA ANDERSON Room: [facility]#: [id number] Admission: 04/17/20 Attend Phys: Rolo Griffith, Discharge: Date of : 31 Date of Service: 04/17/20 1444 Report #: [id number] Pulmonic Valve The pulmonary valve is normal in structure. Mild pulmonic regurgitation. Great Vessels The aortic root is normal in size. IVC is normal in size and collapses >50% with inspiration. Pericardium There is no pericardial effusion. <Conclusion> LVEF is 55-60%. Mild aortic stenosis. Mild aortic regurgitation. Moderately severe mitral regurgitation Mild mitral stenosis. Mild tricuspid regurgitation. estimated pa pressure 40 mmk Hg <ELECTRONICALLY SIGNED> By: Breezy Valadez MD, [facility] 04/17/20 1444 1444 1444 Breezy Valadez MD, [facility] /INF
== END ==
LOC: M.CRD 10:00
PROVIDERS: ATTEND Internal Medicine Cardiovascular Disease
DX: I08.8 Other rheumatic multiple valve diseases (principal)

== ENCOUNTER → 2020-10-24 | Outpatient (CLI) | payer MEDICARE, OTHER ==
[2020-10-24 14:51] LABS: CREATININE 1.7 mg/dL (0.6-1.3); POTASSIUM 3.5 mmol/L (3.5-5.1)
== END ==
LOC: M.LAB 14:02
PROVIDERS: ATTEND Nurse Practitioner
DX: I50.32 Chronic diastolic (congestive) heart failure (principal)

== ENCOUNTER 2020-10-30 14:06 | Inpatient (IN) | payer MEDICARE, OTHER ==
[~2020-10-30] VITALS: Ht 157.5 cm; Wt 58.1 kg
[~2020-10-30 14:06] MED LIST changes: +PRAVACHOL40 MG PO; -PRAVACHOL80 MG PO
[2020-10-30 14:12] VITALS: BP 93/44
[2020-10-30 14:51] LABS: ABSOLUTE EOSINOPHILS 0.2 thou/uL (0.0-0.7); ABSOLUTE LYMPHOCYTES 0.6 thou/uL (0.8-5.3); ABSOLUTE MONOCYTES 0.5 thou/uL (0.0-1.2); ABSOLUTE NEUTROPHILS 2.9 thou/uL (1.6-8.1); BASOPHILS 0.9 %; EOSINOPHILS 3.9 %; HEMATOCRIT 31.7 % (37.0-47.0); HEMOGLOBIN 10.1 gm/dL (12.0-15.0); LYMPHOCYTES 13.2 %; MCH 29.1 pg (26.0-34.0); MCHC 31.9 g/dL (28.0-37.0); MCV 91.2 fL (80.0-100.0); MONOCYTES 12.2 %; MPV 9.1 fl. (7.2-11.1); NUCLEATED RBCS 0 /100WBC; PLATELET COUNT* 110 thou/uL (150-400); POLYS 69.8 %; RBC 3.47 mil/uL (4.20-5.00); RDW-CV 15.4 % (10.5-14.5); WBC 4.2 thou/uL (4.0-11.0)
[2020-10-30 15:00] LABS: CALCIUM 9.1 mg/dL (8.5-10.1); CREATININE 1.5 mg/dL (0.6-1.3); POTASSIUM 3.7 mmol/L (3.5-5.1)
[2020-10-30 15:11] LABS: ALBUMIN 3.3 g/dL (3.4-5.0); TOTAL BILIRUBIN 0.9 mg/dL (<0.1-1.0); TOTAL PROTEIN 6.3 g/dL (6.4-8.2)
--- NOTE | 2020-10-30 16:03 | NUR ---
OSWALDO APPLIED TO PATIENT AT THIS TIME
--- NOTE | 2020-10-30 20:40 | NUR ---
PT BP 99/[address] CHARLES, MAP 64; PT CURRENTLY A XO X4; PT DENIES DIZZINESS, CP OR SOA; PER DR CHARLES PT OK TO GO TO THE FLOOR; GRETTA MARIE ON TELE AWARE OF BP
[2020-10-30 20:50] VITALS: BP 101/51
[2020-10-30 21:15] VITALS: BP 103/51
[2020-10-30 21:20] VITALS: BP 103/51
[2020-10-31 01:01] VITALS: BP 95/52
--- NOTE | 2020-10-31 02:43 | NUR ---
RECIEVED REPORT AT 2046 PER BREE IN ED. THAT THIS PATIENT PRESENTED TO ED WITH C/O SOA D/T CARDIAC AND FEELS LIKE SHE IS FILLING UP WITH FLUID. THIS PT RECIEVED IV LASIX IN THE ED. PT ADMITTED TO 2E UNIT AT 2109. PT TRANSFERRED VIA CART. PT IS A/OX4. VSS. BP 103/51, P75, R18/MIN, O2 SAT 94% ON ROOM AIR, T 98.4F. PT DENIED C/O DIZZINESS OR LIGHTHEADEDNESS. PT DENIES C/O PAIN. PT DENIES C/O N/V. PT PLACED ON TELE MONITOR AND IS SR AV-PACED. SKIN ASSESSED AND IS INTACT. NO WOUNDS PRESENT. PT HAS A SMALL BRUISE NOTED ON RIGHT BUTTOCK. PTS LUNG SOUNDS WERE CLEAR UPON AUSC. PT HAS A PURWICK IN PLACE. PT OUTPUT UPON ADMISSION WAS 850ML YELLOW URINE. PT HAS A 20G LFA-SL. PT HAS AN ORDER FOR 2G NA+ DIET. PT HAS WATER/ICE AT BEDSIDE AND FLUID INTAKE ENCOURAGED. PT REPORTED LEG CRAMPS WHEN TRANSFERRING FROM BED. AFTER APPROX. 10MIN UPON ARRIVAL TO THIS UNIT PT DENIED C/O LEG CRAMPING. CALL LIGHT WITHIN REACH. PT EDUCATED ON HOW TO USE. FALL PRECAUTIONS IN PLACE. PT RESTING IN BED WATCHING TV. PT DENIES ANY C/O. WILL CONT. TO MONITOR.
[2020-10-31 06:15] VITALS: BP 94/46
[2020-10-31 08:59] VITALS: BP 86/47
[2020-10-31 09:11] LABS: CALCIUM 9.2 mg/dL (8.5-10.1); CREATININE 1.6 mg/dL (0.6-1.3); POTASSIUM 4.1 mmol/L (3.5-5.1)
[2020-10-31 13:09] VITALS: BP 102/55
--- NOTE | 2020-10-31 14:31 | 2DMMODE ---
[place] [address] 2 D/M-MODE ECHOCARDIOGRAM Name: BRIANDA ANDERSON Room: [address] ADM IN [facility]#: [id number] Admission: 10/31/20 Attend Phys: Cricket Jauregui Discharge: Date of : 31 Date of Service: 10/31/20 1431 Report #: [id number] THIS REPORT FOR: cc: Robb Schroeder MD, Jonathan MD Liston,Rolo tOero MD [facility] ~ APPROVED REPORT Study performed: 10/31/2020 11:02:09 EXAM: Comprehensive 2D, Doppler, and color-flow Echocardiogram Patient Location: In-Patient Room #: 220 BSA: 1.58 HR: 78 bpm BP: 94/46 mmHg Other Information Study Quality: Good Indications Congestive Heart Failure Murmur Chest Pain 2D Dimensions IVSd: 11.45 (7-11mm) LVOT Diam: 19.88 (18-24mm) LVDd: 48.19 mm PWd: 10.09 (7-11mm) Ascending Ao: 26.67 (22-36mm) LVDs: 31.71 (25-40mm) Aortic Root: 25.65 mm Volumes Left Atrial Volume (Systole) LA ESV Index: 41.10 mL/m2 Aortic Valve AoV Peak Prieto.: 3.67 m/s AO Peak Gr.: 53.78 mmHg LVOT Max P.74 mmHg AO Mean Gr.: 30.20 mmHg LVOT Mean P.06 mmHg LVOT Max V: 1.30 m/s AO V2 VTI: 68.08 cm LVOT Mean V: 0.80 m/s LE (VTI): 1.14 cm2 LVOT V1 VTI: 25.05 [place] [address] 2 D/M-MODE ECHOCARDIOGRAM Name: BRIANDA ANDERSON Room: [address] IN [facility]#: [id number] Admission: 10/31/20 Attend Phys: Cricket Jauregui Discharge: Date of : 31 Date of Service: 10/31/20 1431 Report #: [id number] Mitral Valve MV Peak Gr.: 20.45 mmHg MV Mean Gr.: 8.93 mmHg MV Decel. Time: 261.06 ms MV PHT: 75.71 ms MVA (PHT): 2.91 cm2 TDI Medial E' Prieto.: 0.07 m/s Lateral E' Prieto.: 0.07 m/s Pulmonary Valve PV Peak Prieto.: 0.90 m/s PV Peak Gr.: 3.21 mmHg Tricuspid Valve RAP Estimate: 5.00 mmHg TR Peak Gr.: 36.36 mmHg RVSP: 41.36 mmHg PA Pressure: 41.36 mmHg Left Ventricle The left ventricle is normal size. There is normal LV segmental wall motion. There is normal left ventricular wall thickness. Left ventricular systolic function is normal. LVEF is 60-65%. Transmitral Doppler flow pattern suggests impaired LV relaxation. Right Ventricle The right ventricle is normal size. The right ventricular systolic function is normal. Pacemaker lead is present in the right ventricle. Atria Left atrium is mildly dilated. The right atrium size is normal. Aortic Valve Moderate aortic valve sclerosis. No aortic regurgitation is present. Moderate to severe aortic stenosis. Mitral Valve Moderate mitral annular calcification. The mitral valve is moderately thickened. Moderate to severe mitral regurgitation No evidence of mitral valve stenosis. Tricuspid Valve The tricuspid valve is normal in structure. Moderate tricuspid regurgitation. The RVSP is 45-[place] [address] 2 D/M-MODE ECHOCARDIOGRAM Name: BRIANDA ANDERSON Room: [address] IN [facility]#: [id number] Admission: 10/31/20 Attend Phys: Cricket Jauregui Discharge: Date of : 31 Date of Service: 10/31/20 1431 Report #: [id number] Pulmonic Valve The pulmonary valve is normal in structure. There is no pulmonic valvular regurgitation. Great Vessels The aortic root is normal in size. IVC is not well visualized. Pericardium There is no pericardial effusion. <Conclusion> The left ventricle is normal size. There is normal left ventricular wall thickness. Left ventricular systolic function is normal. LVEF is 60-65%. Transmitral Doppler flow pattern suggests impaired LV relaxation. Pacemaker lead is present in the right ventricle. Left atrium is mildly dilated. Moderate aortic valve sclerosis. Moderate to severe aortic stenosis. Moderate mitral annular calcification. The mitral valve is moderately thickened. Moderate to severe mitral regurgitation Moderate tricuspid regurgitation. The RVSP is 45-50 mmHg. <ELECTRONICALLY SIGNED> By: Rolo Griffith MD, FACC 10/31/20 1431 1431 1431 Rolo Griffith MD, FACC /INF
--- NOTE | 2020-10-31 14:42 | NUR ---
CM COMPLETED THE INITIAL ASSESSMENT TO DISCUSS D/C PLANNING. PT STATED SHE LIVES WITH DTR AND TRAE. PT STATES "BEFORE THIS" SHE WAS INDEPENDENT W/ADLS, ACTIVE, DRIVES AND DOES HER OWN ERRANDS AND CHORES. PT HAS A CANE. PT DENIES HX W/SNF OR HH. PT ROUNDING POC: PT IS HAVING CARDIO WORKUP TODAY.
--- NOTE | 2020-10-31 16:09 | EKG ---
[place] [address] ELECTROCARDIOGRAM REPORT Name: JUSTIN,BRIANDA AG Room: [address] ADM IN .R.#: [id number] Admission: 10/31/20 Attend Phys: Cricket Jauregui Discharge: Date of : 31 Date of Service: 10/30/20 1413 Report #: [id number] THIS REPORT FOR: //name// [facility] ED Test Date: 2020-10-30 Test Time: 14:13:08 Pat Name: BRIANDA ANDERSON Department: Room: [facility] Gender: F [employer]iner [employer]er: CCD : 1935 Requested By: Erick Hernadez Order Number: [id number] MD: Kermit Darden Measurements Intervals [place] Rate: 83 P: 41 MS: 264 QRS: -39 QRSD: 148 T: 111 QT: 425 QTc: 500 Interpretive Statements Atrial-sensed ventricular-paced rhythm No further analysis attempted due to paced rhythm Compared to ECG 12/29/2019 15:57:40 No significant changes Electronically Signed On 10-31-2020 16:08:50 [employer] by Kermit Darden [email or web address] <ELECTRONICALLY SIGNED> By: Kermit Darden MD, [facility] 10/31/20 1608 1413 1413 Kermit Darden MD, [facility] /EPI
[2020-10-31 16:59] VITALS: BP 102/58
--- NOTE | 2020-10-31 18:55 | NUR ---
NO COMPLAINTS THIS SHIFT. DR PIKE GAVE ECHO RESULTS TO PT AND PT'S DAUGHTER THIS AFTERNOON. PT MIGHT DC TOMORROW. CALL LIGHT WITHIN REACH. HOURLY ROUNDING PERFORMED. FALL PRECAUTIONS IN PLACE.
[2020-10-31 20:00] VITALS: BP 93/46
[2020-11-01] VITALS: BP 96/48
[2020-11-01 04:00] VITALS: BP 98/47
[2020-11-01] MEDS ORDERED: TORSEMIDE10 MG PO (07:25)
[2020-11-01] MEDS ORDERED: KLOR-CON 10 ER10 MEQ PO (07:25)
[2020-11-01 08:00] VITALS: BP 90/50; BP 99/50
--- NOTE | 2020-11-01 09:56 | NUR ---
CM SPOKE TO THE PT TO DISCUSS D/C PLANNING AND HH THE PLAN IS FOR THE PT TO D/C HOME TODAY WITH HOME HEALTH LEVEL OF CARE. PT INFORMS THAT SHE HAS NO PREFERENCE OF HH COMPANY LONG IT IS IN-NETWORK WITH HER INSURANCE. PT ACCEPTS HH WITH [facility]. CM CALLED AND FAXED PT'S CLINICAL INFO TO [facility]. CM WILL REMAIN AVAILABLE TO ASSIST AND FOLLOW NEEDED. [facility] PHONE: [phone] FAX: [phone]
[2020-11-01 10:33] LABS: CALCIUM 8.8 mg/dL (8.5-10.1); CREATININE 1.5 mg/dL (0.6-1.3); POTASSIUM 4.1 mmol/L (3.5-5.1)
[2020-11-01 11:31] VITALS: BP 98/47
--- NOTE | 2020-11-01 13:39 | NUR ---
ASSUMED CARE OF PATIENT THIS AM AT 0730. PATIENT IS ALERT AND ORIENTED X 4. TELE SHOWS V PACED RHYTHM. PATIENT IS ON ROOM AIR. ON TO ROUND. PLANS TO DISCHARGE TO HOME THIS AFTERNOON WITH HOME HEALTH. SALINE LOCK AND TELE MONITOR DISCONTINUED.
--- NOTE | 2020-11-01 14:58 | NUR ---
ORDERS RECEIVED AND COMPUTERIZED DOCUMENTATION REVIEWED, HOWEVER PATIENT DISCHARGED BEFORE P.T. EVALUATION. DAGOBERTO VANESSA, MPT
== END 2020-11-01 15:05 | disposition home health service (06) | DRG 291 ==
LOC: M.ERS 14:06 → M.TBA-ER 15:30 → M.2W 21:05
PROVIDERS: Emergency Medicine Emergency Medical Services; Internal Medicine; Registered Nurse; ADMIT Internal Medicine; ATTEND Internal Medicine
DX: I13.0 Hypertensive heart and chronic kidney disease with heart failure and stage 1 through stage 4 chronic kidney disease, or unspecified chronic kidney disease (principal); N17.0 Acute kidney failure with tubular necrosis; I50.33 Acute on chronic diastolic (congestive) heart failure; J96.00 Acute respiratory failure, unspecified whether with hypoxia or hypercapnia; N18.4 Chronic kidney disease, stage 4 (severe); I48.92 Unspecified atrial flutter; D64.9 Anemia, unspecified; E78.5 Hyperlipidemia, unspecified; I08.0 Rheumatic disorders of both mitral and aortic valves; Z20.822 Contact with and (suspected) exposure to COVID-19; Z95.0 Presence of cardiac pacemaker; Z90.49 Acquired absence of other specified parts of digestive tract; Z79.899 Other long term (current) drug therapy; Z88.1 Allergy status to other antibiotic agents; Z88.5 Allergy status to narcotic agent; Z88.2 Allergy status to sulfonamides; Z88.8 Allergy status to other drugs, medicaments and biological substances

== ENCOUNTER → 2020-11-06 | Outpatient (CLI) | payer MEDICARE, OTHER ==
[~2020-11-06] MED LIST changes: +KLOR-CON 10 ER10 MEQ PO; +TORSEMIDE10 MG PO
[2020-11-06 11:53] LABS: CALCIUM 8.7 mg/dL (8.5-10.1); CREATININE 1.6 mg/dL (0.6-1.3); POTASSIUM 3.9 mmol/L (3.5-5.1)
== END ==
LOC: M.LAB 11:20
PROVIDERS: ATTEND Registered Nurse
DX: I50.32 Chronic diastolic (congestive) heart failure (principal)